=== PATIENT | male | born 1995 | race Caucasian/White ===

== ENCOUNTER 2023-01-28 13:54 | Emergency (ER) | payer OTHER, SELFPAY ==
[2023-01-28 13:55] VITALS: BP 143/85; PULSE 72; RESP 18; TEMP 36.5; O2SAT 100
--- NOTE | 2023-01-28 14:10 | PC.NURSE ---
Patient walked out of ED without difficulty and in no distress.
== END 2023-01-28 14:10 | disposition left against medical advice (07) ==
LOC: ANHED 14:24
DX: M25.561 Pain in right knee (principal)
CPT/HCPCS: 99199